=== PATIENT | female | born 1985 | race African-American/Black ===

== ENCOUNTER 2016-03-27 09:26 | Emergency (ER) | payer MEDICAID ==
[~2016-03-27 09:26] MED LIST: METH500T PO; PRENCAP6 PO
[2016-03-27] MEDS ORDERED: LACTATED RINGER'S 1000 ML INJ 1,000 ML IV SCH (10:11)
--- NOTE | 2016-03-27 10:35 | PD ---
HPI Chief Complaint Severe lower abdominal pain Date Seen: Mar 27, 2016 Time Seen: 10:15 Travel History International Travel<30 Days: No Contact w/Intl Traveler<30Days: No Known Affected Area: No History of Present Illness HPI 30-year-old 003 at 19 weeks and 4 days of gestation, EDC is 08/17/16, patient presents to OB ED with complaints of sudden onset of severe lower abdominal pain since last night, patient stated that pain is constant, pain score is 8 out of 10, no radiation, no associated symptoms. Patient denies nausea, vomiting, fever and chills. Patient is unassigned. care is with Dr. Antwan Lopez. course is significant for chronic hypertension and morbid obesity. On examination patient has an exquisite tenderness in the lower abdomen associated with guarding and minimal rebound. Para: 3 : 4 Miscarriage: 0 : 0 History Past Medical History Narrative Medical Significant for history of transient ischemic attacks, history of concoction, history of syncope, sinusitis, anemia, chronic back pain, and morbid obesity. Obstetric History Obstetric History Spontaneous vaginal delivery 3 Past Surgical History Narrative Surgical Denies Surgical History: No Previous Surgery Family History Narrative Family History Grandmother is , father has a history of diabetes, hypertension, COPD and cirrhosis of the liver. Social History Alcohol Use: No Tobacco Use: No Substance Abuse: No Allergies-Medications (Allergen,Severity, Reaction): Coded Allergies: Aspirin (Verified Allergy, Severe, THROAT SWELLS, 01/01/16) Dilaudid (Unverified Allergy, Severe, rash, 01/01/16) Morphine (Verified Allergy, Severe, Hives, 03/27/16) Hydrocodone (Verified Allergy, Mild, itching, 01/01/16) Labetalol (Verified Allergy, Unknown, rash, 01/01/16) Home Meds Active Scripts [id number] M1 500 Mg Njz180 Mg PO Q12 30 Days Ref 1 Prov:Silas Arnett MD 01/01/16 Mv & Min W/Fe Fumarat ( 1) Cap1 Cap PO DAILY 30 Days Ref 11 Prov:Silas Arnett MD 01/01/16 Review of Systems Except as stated in HPI: all other systems reviewed are Neg Gastrointestinal: Abdominal Pain Genitourinary: Pelvic Pain, Other () Physical Exam Narrative GENERAL: Well-nourished, well-developed patient. SKIN: Warm and dry. HEAD: Normocephalic and atraumatic. EYES: No scleral icterus. No injection or drainage. ENT: No nasal drainage noted. Mucous membranes pink. Airway patent. NECK: Supple, trachea midline. No JVD. CARDIOVASCULAR: Regular rate and rhythm without murmurs, gallops, or rubs. RESPIRATORY: Breath sounds equal bilaterally. No accessory muscle use. BREASTS: Bilateral exam showed no masses , no retractions, no nipple discharge. ABDOMEN/GI: Abdomen soft, gravid, non-tender, bowel sounds present, no rebound, no guarding Gravid to 19 weeks size Fundal Height: 19 cm GENITOURINARY: External Genitalia: intact and normal in appearance BUS glands: Normal Cervix: Closed, long, posterior Dilatation: Close Effacement: 30% Station: -3 Presentation: Cephalic Membranes: Intact Uterine Contractions: None Heart Tone by Doppler is 140's EXTREMITIES: No cyanosis or edema. BACK: Nontender without obvious deformity. No CVA tenderness. NEUROLOGICAL: Awake and alert. Motor and sensory grossly within normal limits. Five out of 5 muscle strength in all muscle groups. Normal speech. Data Data Vital Signs Reviewed: Yes Orders Vital Signs (Adult) .ON ADMISSION (03/27/16 10:11) ^ Labor Status (03/27/16 10:11) Urinalysis - C+S If Indicated (03/27/16 10:11) ^ Non Stress Test (03/27/16 10:11) ^ Hydration (03/27/16 10:11) Comprehensive Metabolic Panel (03/27/16 10:11) Lactated Ringer's 1000 Ml Inj (Lr 1000 M (03/27/16 10:11) Ob/Psych Drug Screen, Urine (03/27/16 10:11) Complete Blood Count With Diff (03/27/16 10:11) Amylase (03/27/16 10:11) Lipase (03/27/16 10:11) Mri Abdomen W/O Contrast (03/27/16 10:16) MDM Medical Record Reviewed: Yes Diagnosis Diagnosis: Primary Impression: 19 weeks gestation of Additional Impression: Abdominal pain affecting Disposition: 01 DISCHARGE HOME Condition: Stable Patient Instructions: Abdominal Pain in (ED), General Instructions Additional Instructions: Complete blood count shows white cell count of 14.9, patient underwent pelvic ultrasound and MRI which was unremarkable for appendicitis. We will therefore discharge patient to home. Patient is instructed to return to labor and delivery if increased abdominal pain, cramping, contractions, leakage of fluids , vaginal bleeding, or decreased movement. Drink plenty of fluids. Monitor kick counts. Keep your office appointment with your doctor as scheduled. Take her pain medication as prescribed. She is given a prescription for Tylenol 650 mg orally every 6 hours as needed for pain. Departure Forms: Tests/Procedures Ravin Chavez MD Mar 27, 2016 10:35
[2016-03-27 10:58] LABS: AUTOMATED NEUTROPHIL # 10.7 TH/MM3 (1.8-7.7); BASOPHIL # 0.1 TH/MM3 (0-0.2); BASOPHIL % 0.4 % (0.0-2.0); EOSINOPHIL # 0.2 TH/MM3 (0-0.4); EOSINOPHIL % 1.1 % (0.0-4.0); HEMATOCRIT 29.4 % (35.0-46.0); LYMPH % 17.9 % (9.0-44.0); LYMPHOCYTE # 2.7 TH/MM3 (1.0-4.8); MEAN CELL VOLUME 68.5 FL (80.0-100.0); MEAN CORPUSCULAR HEMOGLOBIN 23.1 PG (27.0-34.0); MEAN CORPUSCULAR HGB CONC 33.8 % (32.0-36.0); MONO % 8.6 % (0.0-8.0); PLATELET COUNT 299 TH/MM3 (150-450); RED CELL DISTRIBUTION WIDTH 17.3 % (11.6-17.2); WHITE BLOOD COUNT 14.9 TH/MM3 (4.0-11.0)
[2016-03-27 10:59] LABS: BACTERIA, URINE FEW /hpf; BLOOD, URINE NEG (NEG); GLUCOSE,URINE NEG (NEG); KETONE, URINE NEG (NEG); MUCUS URINE FEW /lpf (OCC); NITRITE,URINE NEG (NEG); SQUAMOUS EPITHELIAL CELL URINE 12 /hpf (0-5); URINE COLOR YELLOW (YELLW/STRAW)
[2016-03-27 11:00] LABS: COMMENT (UR) CULT NOT INDICATED; CULTURE IF INDICATED CULT NOT INDICATED
[2016-03-27 11:01] LABS: HEMO FLAGS AUTO DIFF
[2016-03-27 11:04] LABS: AMPHETAMINE, URINE NEG (NEG); BARBITURATES, URINE NEG (NEG); COCAINE, URINE NEG (NEG)
[2016-03-27 11:24] LABS: ALT (GPT) 13 U/L (10-53); AMYLASE 92 U/L (25-115); ANION GAP 9 MEQ/L (5-15); AST (GOT) 14 U/L (15-37); BICARBONATE 24.2 MEQ/L (21.0-32.0); BLOOD UREA NITROGEN 6 MG/DL (7-18); CHLORIDE 107 MEQ/L (98-107); GLOMERULAR FILTRATION RATE 131 ML/MIN (>89); SODIUM (NA) 140 MEQ/L (136-145); URIC ACID 3.1 MG/DL (2.6-6.0)
[2016-03-27 11:26] LABS: ALKALINE PHOSPHATASE 93 U/L (45-117); TOTAL BILIRUBIN ADULT 0.3 MG/DL (0.2-1.0)
[2016-03-27 12:01] LABS: SCAN/DIFF AUTO DIFF CONFIRMED
--- NOTE | 2016-03-27 13:52 | RADRPT ---
EXAM DATE/TIME: 03/27/2016 13:23 [facility] COMPARISON: No previous studies available for comparison. INDICATIONS : Bilateral lower pelvic pain. MEDICAL HISTORY : Hypertension. Headache. TIA. Syncope. Sinusitis. Anemia. Chronic back pain. Morbid obesity. SURGICAL HISTORY : None. ENCOUNTER: Initial ACUITY: 1 day PAIN SCORE: 8/10 LOCATION: Bilateral lower quadrant AREA EVALUATED: Bilateral lower quadrants. FINDINGS: Rogel scale and Doppler imaging of the pelvis and right lower outer was performed. Patient has bilater al lower abdominal pain that is greater on the right side. She is approximately 19 weeks . No free fluid is identified in the pelvis. There is shadowing bowel in the right lower quadrant and no appendix is visualized. The ovaries demonstrate blood flow and are normal in size. CONCLUSION: Normal abdominal ultrasound. No free fluid is seen. The appendix is not identified. Patient will proc eed with MRI scanning to evaluate for acute appendicitis. Anuj Herrera MD on March 27, 2016 at 13:49 Board Certified Radiologist. This report was verified electronically.
--- NOTE | 2016-03-27 14:55 | RADRPT ---
EXAM DATE/TIME: 03/27/2016 13:43 [facility] COMPARISON: No previous studies available for comparison. INDICATIONS : Abdominal pain. Evaluate for appendicitis. 19 weeks . MEDICAL HISTORY : . Hypertension. SURGICAL HISTORY : None. ENCOUNTER: Initial ACUITY: 1 day PAIN SCORE: 4/10 LOCATION: pelvis TECHNIQUE: Multiplanar, multisequence magnetic resonance imaging of the abdomen was performed without contrast. FINDINGS: Patient is 19 weeks and there is suspicion for acute appendicitis. Ultrasound examination wa s inconclusive. The terminal ileum has a normal appearance as does the base of the cecum. The appendix is not confide ntly visualized but the region around the expected location of the appendix demonstrates no definite abnormality. No free fluid is visualized in the abdomen or pelvis. There is a single intrauterine gestation present with the fetus in a cephalic presentation. Examinati on is was not performed for detailed evaluation of the fetus. The placenta is anteriorly located and demonstrates no abnormality. There are prominent parametrial vessels, as expected. There is a cyst in the left mid kidney measuring 19 mm and appears simple. No other abnormality is visualized. CONCLUSION: The appendix is not confidently visualized but the terminal ileum has a normal appearance and the are a around the base of the cecum demonstrates no abnormality. This suggests against acute appendicitis. If clinical suspicion persists consider followup. Anuj Herrera MD on March 27, 2016 at 14:49 Board Certified Radiologist. This report was verified electronically.
[2016-03-27] MEDS ORDERED: ACETAMINOPHEN 500 MG CPLT PO ONE (16:00)
[2016-03-31 18:28] LABS: BATH SALTS (MDPV) UR NEG (NEG); ECSTASY (MDMA) UR NEG (NEG); HEROIN (6-ACETYLMORPHINE) UR NEG (NEG); K2 SPICE UR NEG (NEG); OBMETHADONE UR NEG (NEG); OXYCODONE (PERCODAN) NEG (NEG); PHENCYCLIDINE URINE NEG (NEG)
== END 2016-03-27 15:58 | disposition home or self-care (01) ==
LOC: HOBED 09:26
DX: O26.892 Other specified pregnancy related conditions, second trimester (principal); O10.912 Unspecified pre-existing hypertension complicating pregnancy, second trimester; R10.2 Pelvic and perineal pain; O99.212 Obesity complicating pregnancy, second trimester; E66.01 Morbid (severe) obesity due to excess calories; Z3A.19 19 weeks gestation of pregnancy
CPT/HCPCS: 36415; 74181; 76705; 80053; 80307; 81001; 82150; 82570; 83615; 83690; 84156; 84550; 85025; 96360; 96361; 99284; G0481; J7120

== ENCOUNTER 2016-05-29 01:36 | Emergency (ER) | payer MEDICAID ==
--- NOTE | 2016-05-29 03:28 | PD ---
HPI Chief Complaint: dental pain Time Seen by Provider: 01:55 Travel History International Travel<30 days: No Contact w/Intl Traveler<30days: No History of Present Illness HPI Patient comes in complaining of left lower molar dental pain radiating into her left ear ongoing for 1 week. Patient states she saw her dentist on Monday was started on Pen-Vee K, however it made her hands tingle and she stopped taking it. Patient states she is 7 months and has been able take amoxicillin during without any issues. Patient states she last took amoxicillin approximately 3 months ago for bronchitis. Patient states she's not been able to eat that much secondary to the pain in her tooth. She been taking Tylenol for the pain with minimal relief. Denies any fevers, nausea, vomiting, neck pain, or difficulty swallowing. Patient states she was told she needs a root canal by her dentist and is waiting to get with an oral surgeon. PFSH Past Medical History Diminished Hearing: No Hypertension: Yes Immunizations Current: Yes : 3 Para: 3 Miscarriage: 0 : 0 Social History Alcohol Use: No Tobacco Use: No Substance Use: No Allergies-Medications (Allergen,Severity, Reaction): Coded Allergies: Aspirin (Verified Allergy, Severe, THROAT SWELLS, 01/01/16) Dilaudid (Unverified Allergy, Severe, rash, 01/01/16) Morphine (Verified Allergy, Severe, Hives, 03/27/16) Hydrocodone (Verified Allergy, Mild, itching, 01/01/16) Labetalol (Verified Allergy, Unknown, rash, 01/01/16) Reported Meds & Prescriptions Reported Meds & Active Scripts Active [id number] M1 500 Mg Tab 500 Mg PO Q12 30 Days 1 ( Multivitamins) Cap 1 Cap PO DAILY 30 Days Review of Systems Except as stated in HPI: all other systems reviewed are Neg Physical Exam Narrative GENERAL: Well-developed, well nourished, in no acute distress, and non-ill appearing. SKIN: Warm and dry. HEAD: Atraumatic. Normocephalic. EYES: Pupils equal and round. EOMI. No scleral icterus. No injection or drainage. ENT: No nasal bleeding or discharge. Mucous membranes pink and moist. Tympanic membranes pearly carrillo bilaterally. Posterior pharynx nonerythematous without exudate. Uvula is midline. There is poor dentition with no visible or palpable abscess. Patient has dental cement noted in left lower molar. Floor the mouth, submandibular, submental are all soft palpation. NECK: Trachea midline. No cervical lymphadenopathy. Supple. No nuclear rigidity. RESPIRATORY: No accessory muscle use. No respiratory distress. MUSCULOSKELETAL: No obvious deformities. No clubbing. No cyanosis. No edema. Full range of motion. NEUROLOGICAL: Awake and alert. No obvious cranial nerve deficits. Motor grossly within normal limits. Normal speech. PSYCHIATRIC: Appropriate mood and affect; insight and judgment normal. MDM Medical Decision Making Medical Screen Exam Complete: Yes Emergency Medical Condition: Yes Differential Diagnosis Dental infection, dental abscess, dentalgia, other Narrative Course The patient presented with dental pain. There is no fever. There is no significant facial swelling or evidence of cellulitis. There is poor dentition but no evidence of drainable abscess at this time. There is no evidence of significant deep or invading abscess at this time. The patient will be placed on antibiotics (amoxicillin instructed to stop penicillin). The patient was instructed to follow up with a dentist. Warnings were discussed with the patient regarding worsening of infection. The patient is to return if pain worsens, develops progressive swelling or facial redness or fever. The patient agrees with plan. Patient in no obvious distress upon re-evaluation. Patient was asked if they wanted to speak to my attending, which the patient did not wish to do at this time. Any questions/concerns in reference to patient diagnosis/condition discussed and clarified prior to patient's discharge. Reinforced sheer importance of close follow up with patient's primary physician or primary care clinic and/or dentist. Instructed patient to return to ED immediately, if symptoms return/worsen. Pt showed understanding of above instructions. Further instructions and recommendations were detailed in discharge paperwork. Pt ambulated without difficulty out of ED at discharge. Diagnosis Primary Impression: Dentalgia Med/Other Pt SpecificInfo: Prescription(s) given Disposition: 01 DISCHARGE HOME Condition: Stable Rehan Quijano May 29, 2016 03:28
== END 2016-05-29 03:45 | disposition home or self-care (01) ==
LOC: NED 01:36
DX: O26.893 Other specified pregnancy related conditions, third trimester (principal); K08.89 Other specified disorders of teeth and supporting structures; H92.02 Otalgia, left ear; Z3A.00 Weeks of gestation of pregnancy not specified
CPT/HCPCS: 99282

== ENCOUNTER 2016-06-07 21:59 | Emergency (ER) | payer MEDICAID ==
--- NOTE | 2016-06-07 22:59 | PD ---
HPI Chief Complaint Fluid per vagina at 8:45pm Date Seen: Jun 07, 2016 Time Seen: 22:52 Travel History International Travel<30 Days: No Contact w/Intl Traveler<30Days: No Known Affected Area: No History of Present Illness HPI Patient is 30-year-old female who is at 29 weeks and 6 days based on an DONAL of August 17, 2016. She sees Dr. Shankar who manages her chronic hypertension with Aldomet. Earlier this evening patient experienced some sticky mucus per vagina that went down her thigh. She denies contractions or abdominal pain, denies vaginal bleeding. Para: 3 : 4 History Past Medical History Narrative Medical Chronic hypertension patient was on Norvasc prior to and was switched to Aldomet after her was diagnosed Obstetric History Obstetric History Spontaneous vaginal delivery 3 Past Surgical History Surgical History: No Previous Surgery Family History Family History: Negative Social History Alcohol Use: No Tobacco Use: No Substance Abuse: No Allergies-Medications (Allergen,Severity, Reaction): Coded Allergies: Aspirin (Verified Allergy, Severe, THROAT SWELLS, 01/01/16) Dilaudid (Unverified Allergy, Severe, rash, 01/01/16) Morphine (Verified Allergy, Severe, Hives, 03/27/16) Hydrocodone (Verified Allergy, Mild, itching, 01/01/16) Labetalol (Verified Allergy, Unknown, rash, 01/01/16) Home Meds Active Scripts Methyldopa (Methyldopa)500 Mg Gna255 Mg PO Q12 30 Days Ref 1 Prov:Silas Arnett MD 01/01/16 Mv & Min W/Fe Fumarat ( 1) Cap1 Cap PO DAILY 30 Days Ref 11 Prov:Silas Arnett MD 01/01/16 Review of Systems Except as stated in HPI: all other systems reviewed are Neg Physical Exam Narrative GENERAL: Well-nourished, well-developed patient. SKIN: Warm and dry. HEAD: Normocephalic and atraumatic. EYES: No scleral icterus. No injection or drainage. ENT: No nasal drainage noted. Mucous membranes pink. Airway patent. NECK: Supple, trachea midline. No JVD. CARDIOVASCULAR: Regular rate and rhythm without murmurs, gallops, or rubs. RESPIRATORY: Breath sounds equal bilaterally. No accessory muscle use. BREASTS: Bilateral exam showed no masses , no retractions, no nipple discharge. ABDOMEN/GI: Abdomen soft, non-tender, bowel sounds present, no rebound, no guarding Gravid to [-30] weeks size, exam is difficult secondary to patient habitus Fundal Height: [-] GENITOURINARY: External Genitalia: intact and normal in appearance BUS glands: [-Normal] Cervix: Posterior Dilatation: Closed Effacement: Long Station: -3 Presentation: Vertex Membranes: Intact head is ballotable, amnisure is negative Uterine Contractions: [-] FHT's: Category: [1-] Baseline: 140 Reactive: Moderate Variability: Moderate with accelerations Decels: [-Absent] EXTREMITIES: No cyanosis or edema. BACK: Nontender without obvious deformity. No CVA tenderness. NEUROLOGICAL: Awake and alert. Motor and sensory grossly within normal limits. Five out of 5 muscle strength in all muscle groups. Normal speech. 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 Diagnosis Diagnosis: Primary Impression: 29 weeks gestation of Additional Impressions: Morbid obesity due to excess calories Chronic hypertension during Chronic hypertension with exacerbation during in third trimester Disposition: 01 DISCHARGE HOME Maida Reyes MD Jun 07, 2016 22:58
== END 2016-06-07 23:05 | disposition home or self-care (01) ==
LOC: HOBED 21:59
DX: O99.213 Obesity complicating pregnancy, third trimester (principal); E66.01 Morbid (severe) obesity due to excess calories; O10.913 Unspecified pre-existing hypertension complicating pregnancy, third trimester; O26.893 Other specified pregnancy related conditions, third trimester; N89.8 Other specified noninflammatory disorders of vagina; Z3A.29 29 weeks gestation of pregnancy
CPT/HCPCS: 84112; 99284

== ENCOUNTER 2017-03-29 18:38 | Emergency (ER) | payer MEDICAID ==
[~2017-03-29] VITALS: Ht 175.3 cm; Wt 104.5 kg
[2017-03-29 18:40] VITALS: BP 182/111; PULSE 94; RESP 14; TEMP 99; O2SAT 100
--- NOTE | 2017-03-29 19:41 | PD ---
HPI Chief Complaint: Injury Time Seen by Provider: 19:38 Travel History International Travel<30 days: No Contact w/Intl Traveler<30days: No Traveled to known affect area: No History of Present Illness HPI 31-year-old female presents to the emergency department for evaluation of left knee pain. Patient slipped and fell in [employer] one week ago landing on the anterior aspect of the knee. She states that she has been ambulatory since but the pain has not resolved. Pain is exacerbated with movement. It is constant, moderate in severity. Does not radiate anywhere. Denies any limitations range of motion. No other symptoms to report. PFSH Past Medical History Diminished Hearing: No Hypertension: Yes Immunizations Current: Yes ?: Not LMP: 03/27/2017 : 3 Para: 3 Miscarriage: 0 : 0 Social History Alcohol Use: No Tobacco Use: No Substance Use: No Allergies-Medications (Allergen,Severity, Reaction): Coded Allergies: aspirin (Unverified Allergy, Severe, THROAT SWELLS, 10/18/16) hydromorphone (Unverified Allergy, Severe, rash, 10/18/16) morphine (Unverified Allergy, Severe, Hives, 10/18/16) hydrocodone (Unverified Allergy, Mild, itching, 10/18/16) labetalol (Unverified Allergy, Unknown, rash, 10/18/16) Reported Meds & Prescriptions Reported Meds & Active Scripts Active Ibuprofen 800 Mg Tab 800 Mg PO Q8H PRN Methyldopa 500 Mg Tab 500 Mg PO Q12 30 Days 1 ( Multivitamins) Cap 1 Cap PO DAILY 30 Days Review of Systems Except as stated in HPI: all other systems reviewed are Neg Physical Exam Narrative GENERAL: Obese female patient, in no acute distress. SKIN: Focused skin assessment warm/dry. HEAD: Atraumatic. Normocephalic. EYES: Pupils equal and round. No scleral icterus. No injection or drainage. ENT: No nasal bleeding or discharge. Mucous membranes pink and moist. NECK: Trachea midline. No JVD. CARDIOVASCULAR: Regular rate and rhythm. No murmur appreciated. RESPIRATORY: No accessory muscle use. Clear to auscultation. Breath sounds equal bilaterally. GASTROINTESTINAL: Abdomen soft, non-tender, nondistended. Hepatic and splenic margins not palpable. MUSCULOSKELETAL: No obvious deformities. No clubbing. No cyanosis. No edema. Denies illicit palpation of the anterior left knee. No obvious deformity. Patient has full flexion and extension. Distal pulses are palpable. NEUROLOGICAL: Awake and alert. No obvious cranial nerve deficits. Motor grossly within normal limits. Normal speech. PSYCHIATRIC: Appropriate mood and affect; insight and judgment normal. Data Data Last Documented VS Vital Signs Date Time Temp Pulse Resp B/P (MAP) Pulse Ox O2 Delivery O2 Flow Rate FiO2 03/29/17 20:54 03/29/17 18:40 99.0 94 14 100 Orders Orders Knee, Complete (4vws) (03/29/17 ) Ibuprofen (Motrin) (03/29/17 20:00) Ed Discharge Order (03/29/17 20:45) Rod Bandage (03/29/17 20:47) [facility] Medical Decision Making Medical Screen Exam Complete: Yes Emergency Medical Condition: Yes Medical Record Reviewed: Yes Differential Diagnosis Contusion versus fracture versus joint effusion versus sprain Narrative Course 31-year-old female presents to the emergency department for evaluation left knee pain. Patient does have tenderness over the anterior aspect of the knee but no deformity and no limitation in range of motion. X-ray imaging confirms no acute bony abnormality. Patient was given ibuprofen for pain. Rod wrap is applied. I have counseled her on care. She agrees to return immediately with any acute worsening of symptoms. Diagnosis Primary Impression: Contusion of left knee Qualified Codes: S80.02XA - Contusion of left knee, initial encounter Referrals: Primary Care Physician Patient Instructions: Contusion in Adults (ED), General Instructions Additional Instructions: Ice and elevate to reduce pain and swelling Rod wrap for compression and comfort Follow-up with a primary care provider Return immediately with any acute worsening symptoms Med/Other Pt SpecificInfo: Prescription(s) given, No Change to Meds Scripts Ibuprofen (Ibuprofen) 800 Mg Tab 800 MG PO Q8H Y for Pain/Inflammation, #30 TAB 0 Refills Prov: Diann Cervantes DAYANARA 03/29/17 Disposition: 01 DISCHARGE HOME Condition: Stable BillyDiann NICHOLE Mar 29, 2017 19:40
[2017-03-29] MEDS ORDERED: IBUPROFEN 800 MG TAB PO ONE (20:00)
--- NOTE | 2017-03-29 20:42 | RADRPT ---
EXAM DATE/TIME: 03/29/2017 19:56 [facility] COMPARISON: No previous studies available for comparison. INDICATIONS : Knee pain due to fall. MEDICAL HISTORY : Hypertension. SURGICAL HISTORY : None. ENCOUNTER: Initial ACUITY: 1 day PAIN SCORE: 9/10 LOCATION: Left knee FINDINGS: Four view examination of the left knee demonstrates no evidence of fracture or dislocation. Bony min eralization is normal. The articular surfaces are intact. The suprapatellar soft tissues have a nor mal configuration. CONCLUSION: 1. No acute findings. Chele Alvarez MD on March 29, 2017 at 20:39 Board Certified Radiologist. This report was verified electronically.
[2017-03-29] MEDS ORDERED: IBUP1TAB7 PO (20:47)
== END 2017-03-29 20:55 | disposition home or self-care (01) ==
LOC: NEPD 18:38
DX: S80.02XA Contusion of left knee, initial encounter (principal); I10 Essential (primary) hypertension; Z88.5 Allergy status to narcotic agent; Z88.8 Allergy status to other drugs, medicaments and biological substances; W01.0XXA Fall on same level from slipping, tripping and stumbling without subsequent striking against object, initial encounter; Y92.512 Supermarket, store or market as the place of occurrence of the external cause
CPT/HCPCS: 73564; 99283

== ENCOUNTER 2017-06-25 08:10 | Emergency (ER) | payer MEDICAID ==
[~2017-06-25] VITALS: Ht 175.3 cm; Wt 132.0 kg
[~2017-06-25 08:10] MED LIST changes: +IBUP1TAB7 PO
[2017-06-25 08:21] VITALS: BP 121/76; PULSE 81; RESP 17; TEMP 98; O2SAT 100
[2017-06-25] MEDS ORDERED: AMLO10 PO (08:33)
--- NOTE | 2017-06-25 09:01 | PD ---
HPI Chief Complaint: Musculoskeletal Complaint Time Seen by Provider: 08:32 Travel History International Travel<30 days: No Contact w/Intl Traveler<30days: No Traveled to known affect area: No History of Present Illness HPI 31-year-old female presents emergency department status post slip and fall in her bathtub last evening. She fell directly onto the anterior part of the right knee. She now has knee pain and swelling and difficulty with ambulating. The patient is grossly obese. There is no open wound or abrasion. She denies other injury. No hip pain or back pain. Pain in the knee is 10 out of 10. It is worse with palpation or movement. She denies loss of function. She has multiple allergies including aspirin, hydrocodone, hydromorphone, labetalol, and morphine. PFSH Past Medical History Diminished Hearing: No Hypertension: Yes Immunizations Current: Yes Tetanus Vaccination: Unknown Influenza Vaccination: No ?: Not LMP: 06/2017 : 3 Para: 3 Miscarriage: 0 : 0 Past Surgical History Surgical History: No Previous Surgery Social History Alcohol Use: No Tobacco Use: No Substance Use: No Allergies-Medications (Allergen,Severity, Reaction): Coded Allergies: aspirin (Unverified Allergy, Severe, THROAT SWELLS, 06/25/17) hydromorphone (Unverified Allergy, Severe, rash, 06/25/17) morphine (Unverified Allergy, Severe, Hives, 06/25/17) hydrocodone (Unverified Allergy, Mild, itching, 06/25/17) labetalol (Unverified Allergy, Unknown, rash, 06/25/17) Reported Meds & Prescriptions Reported Meds & Active Scripts Active Ibuprofen 800 Mg Tab 800 Mg PO Q8H PRN Reported Norvasc (Amlodipine Besylate) 10 Mg Tab 10 Mg PO DAILY Review of Systems Except as stated in HPI: all other systems reviewed are Neg General / Constitutional: No: Fever Eyes: No: Visual changes HENT: No: Headaches Cardiovascular: No: Chest Pain or Discomfort Respiratory: No: Shortness of Breath Gastrointestinal: No: Abdominal Pain Genitourinary: No: Dysuria Musculoskeletal: Positive: Myalgias, Arthralgias, Limited ROM, Pain Skin: No Rash Neurologic: No: Weakness Psychiatric: No: Depression Endocrine: No: Polydipsia Hematologic/Lymphatic: No: Easy Bruising Physical Exam Narrative GENERAL: Patient appears in mild to moderate distress. SKIN: Warm and dry. Normal color. Normal turgor. No abrasions. No ecchymosis HEAD: Atraumatic. Normocephalic. EYES: Pupils equal and round. No scleral icterus. No injection or drainage. ENT: No nasal bleeding or discharge. Mucous membranes pink and moist. NECK: Trachea midline. Full range of motion without tenderness CARDIOVASCULAR: Regular rate and rhythm. RESPIRATORY: No accessory muscle use. Clear to auscultation. Breath sounds equal bilaterally. GASTROINTESTINAL: Abdomen soft, non-tender, nondistended. Hepatic and splenic margins not palpable. MUSCULOSKELETAL: Extremities without clubbing, cyanosis, or edema. No obvious deformities. Patient has pain with palpation along the anterior patella and proximal tibial plateau. Range of motion is reduced secondary to pain. No obvious laxity. Mild effusion. Further exam is unable to be performed secondary to patient's pain. NEUROLOGICAL: Awake and alert. No obvious cranial nerve deficits. Motor grossly within normal limits. Five out of 5 muscle strength in the arms and legs. Normal speech. PSYCHIATRIC: Appropriate mood and affect; insight and judgment normal. Data Data Last Documented VS Vital Signs Date Time Temp Pulse Resp B/P (MAP) Pulse Ox O2 Delivery O2 Flow Rate FiO2 06/25/17 08:21 98.0 81 17 121/76 (91) 100 Orders Orders Knee, Complete (4vws) (06/25/17 08:33) Ice/Cold Pack (06/25/17 08:33) Crutches (06/25/17 09:07) Ed Discharge Order (06/25/17 09:13) Splint Or Brace Apply/Monitor (06/25/17 09:23) [facility] Medical Decision Making Medical Screen Exam Complete: Yes Emergency Medical Condition: Yes Differential Diagnosis Slip and fall. Right knee contusion. Fracture. Right knee effusion. Narrative Course X-ray of the right knee is obtained. Patient is given ibuprofen 800 mg p.o. now. Ice is placed on the affected area. X-rays negative for any acute process. Patient is placed in a Rod wrap and crutches. Patient is given ibuprofen 800 mg 3 times daily #30. Patient to follow-up with her primary care physician or Dr. Manzano, the orthopedic on-call Diagnosis Primary Impression: Contusion of right knee, initial encounter Referrals: Iván Manzano Jr., MD Patient Instructions: Contusion in Adults (ED), General Instructions, Swollen Knee Joint (ED) Departure Forms: Work Release Enter return to work date: Jun 28, 2017 Additional Instructions: X-rays negative for any acute process. Patient is placed in a Rod wrap and crutches. Patient is given ibuprofen 800 mg 3 times daily #30. Patient to follow-up with her primary care physician or Dr. Manzano, the orthopedic on-call Med/Other Pt SpecificInfo: Prescription(s) given Scripts Ibuprofen (Ibuprofen) 800 Mg Tab 800 MG PO Q8H Y for Pain/Inflammation, #30 TAB 0 Refills Prov: Soila Martinez MD 06/25/17 Disposition: 01 DISCHARGE HOME Condition: Stable Cheo Pires Jun 25, 2017 09:01
--- NOTE | 2017-06-25 09:04 | RADRPT ---
EXAM DATE/TIME: 06/25/2017 08:47 [facility] COMPARISON: No previous studies available for comparison. INDICATIONS : Right knee pain. Patient states she fell last night and felt a pop in her knee. MEDICAL HISTORY : None. SURGICAL HISTORY : None. ENCOUNTER: Initial ACUITY: 2 days PAIN SCORE: 9/10 LOCATION: Right knee. FINDINGS: Four view examination of the right knee demonstrates no evidence of fracture or dislocation. Bony mi neralization is normal. The articular surfaces are intact. The suprapatellar soft tissues have a no rmal configuration. CONCLUSION: Negative trauma study. Saroj Lezama MD on June 25, 2017 at 9:01 Board Certified Radiologist. This report was verified electronically.
[2017-06-25] MEDS ORDERED: IBUP1TAB7 PO (09:13)
== END 2017-06-25 09:33 | disposition home or self-care (01) ==
LOC: NEPD 08:10
DX: S80.01XA Contusion of right knee, initial encounter (principal); I10 Essential (primary) hypertension; Y93.E1 Activity, personal bathing and showering; W01.0XXA Fall on same level from slipping, tripping and stumbling without subsequent striking against object, initial encounter
CPT/HCPCS: 73564; 99283; E0113; L1830

== ENCOUNTER 2017-08-04 07:15 | Emergency (ER) | payer MEDICAID ==
[~2017-08-04] VITALS: Ht 170.2 cm; Wt 132.0 kg
[~2017-08-04 07:15] MED LIST changes: +AMLO10 PO; -METH500T PO; -PRENCAP6 PO
[2017-08-04 07:18] VITALS: BP 190/85; PULSE 66; RESP 20; TEMP 97.6; O2SAT 100
--- NOTE | 2017-08-04 08:09 | PD ---
HPI Chief Complaint: Fall Time Seen by Provider: 07:50 Travel History International Travel<30 days: No Contact w/Intl Traveler<30days: No Traveled to known affect area: No History of Present Illness HPI 31yo F presents to the ED for R knee and R thumb pain following a fall yesterday afternoon. Pt states that she falls often, and attributes it to her blood pressure, and is unsure of how she fell yesterday. During this past fall, she denies any LOC or head trauma, but fell on her R knee and R hand. She was able to ambulate immediately after the fall, and can put some pressure on it currently. She states that pressure/weight bearing aggravates it, and is slightly alleviated by elevation, ice and ibuprofen. She reports numbness in the RLE with ambulation, limited ROM, tenderness and edema. She denies any erythema to the joint, warmth to touch, fevers, additional arthralgias, headaches or dizziness. PFSH Past Medical History Diminished Hearing: No Hypertension: Yes Immunizations Current: Yes Tetanus Vaccination: Unknown Influenza Vaccination: No ?: Not LMP: 07/18/2017 : 3 Para: 3 Miscarriage: 0 : 0 Past Surgical History Surgical History: No Previous Surgery Social History Alcohol Use: No Tobacco Use: No Substance Use: No Allergies-Medications (Allergen,Severity, Reaction): Coded Allergies: aspirin (Unverified Allergy, Severe, THROAT SWELLS, 08/04/17) hydromorphone (Unverified Allergy, Severe, rash, 08/04/17) morphine (Unverified Allergy, Severe, Hives, 08/04/17) hydrocodone (Unverified Allergy, Mild, itching, 08/04/17) labetalol (Unverified Allergy, Unknown, rash, 08/04/17) Reported Meds & Prescriptions Reported Meds & Active Scripts Active Reported Norvasc (Amlodipine Besylate) 10 Mg Tab 10 Mg PO DAILY Review of Systems Except as stated in HPI: all other systems reviewed are Neg Musculoskeletal: Positive: Limited ROM, Edema, Pain Physical Exam Narrative GENERAL: well developed, obese female who is in no acute distress. Alert and oriented x3. SKIN: Warm and dry. HEAD: Atraumatic. Normocephalic. CARDIOVASCULAR: Regular rate and rhythm. RESPIRATORY: No accessory muscle use. Clear to auscultation. Breath sounds equal bilaterally. MUSCULOSKELETAL: Extremities without clubbing or cyanosis. Limited ROM in R knee , with tenderness along the lateral, superior aspect. No erythema. Unable to appreciate considerable edema due to patient's body habitus. Pedal pulses palpable and symmetric bilaterally. RLE pain with passive and active motion. NEUROLOGICAL: Awake and alert. No obvious cranial nerve deficits. Motor grossly within normal limits. Five out of 5 muscle strength in the LUE and LLE. RLE muscle strength unappreciable due to minimal effort. Normal speech. PSYCHIATRIC: Appropriate mood and affect; insight and judgment normal. Data Data Last Documented VS Vital Signs Date Time Temp Pulse Resp B/P (MAP) Pulse Ox O2 Delivery O2 Flow Rate FiO2 08/04/17 07:18 97.6 66 20 190/85 (120) 100 Orders Orders Hand, Limited (2vws) (08/04/17 08:26) Knee, Ltd (1 Or 2vws) (08/04/17 08:26) Ibuprofen (Motrin) (08/04/17 09:15) Support Splint (08/04/17 09:46) ^ Knee Immobilizer (08/04/17 09:46) [employer] Request For Service (08/04/17 09:46) Mandatory Outpatient Referral (08/04/17 09:48) MDM Medical Decision Making Medical Screen Exam Complete: Yes Emergency Medical Condition: Yes Differential Diagnosis Right knee contusion versus fracture versus right hand contusion versus fracture Narrative Course 31-year-old female with history of hypertension, obesity, who presents today with complaints of right knee pain and right hand pain. Patient reports falling. There is no syncopal episode. This was a mechanical fall. X-ray of the knee and right hand show no evidence of acute fracture or injury. The patient will be placed in a right knee immobilizer. She also be placed in the right thumb spica splint. She is instructed to ice the extremities. A mandatory referral will be placed for Ortho follow-up. She is instructed to keep her right hand in the splint until seen by orthopedic doctor. She is instructed to return if she develops any worsening symptoms. She also has a history of hypertension her blood pressure was elevated when she arrived. She will be given information from the [facility] for follow-up. She is instructed to make an appointment and have her blood pressure rechecked. If it remains elevated she was told that she may likely need to have adjustment on her medications. Diagnosis Primary Impression: Contusion of right hand Additional Impressions: Contusion of right knee Status post mechanical fall Hypertension Additional Instructions: Ice 2-3 times daily. Elevate when not ambulatory. A mandatory referral for orthopedic doctor will be placed. You will receive a call from a case management specialist time he went to follow-up. Return if worse. Follow-up with the [facility] for blood pressure management. Disposition: 01 DISCHARGE HOME Condition: Stable Jorge Roman MD Aug 04, 2017 08:09
--- NOTE | 2017-08-04 09:14 | RADRPT ---
EXAM DATE: 08/04/2017 8:59 AM EDT AGE/SEX: 31 years / Female INDICATIONS: Fall, complains of right first digit pain. CLINICAL DATA: This is the patient's initial encounter. Patient reports that signs and symptoms have been present for 2 days and indicates a pain score of 9/10. MEDICAL/SURGICAL HISTORY: . High blood pressure . None COMPARISON: No prior [facility] exams available for comparison. FINDINGS: Bony structures are intact and in normal alignment. Osseous density is normal. Soft tissues are unre markable. No radiopaque foreign bodies seen. CONCLUSION: Negative trauma study. Electronically signed by: Saroj Lezama MD 08/04/2017 9:13 AM EDT
[2017-08-04] MEDS ORDERED: IBUPROFEN 600 MG TAB PO ONE (09:15)
--- NOTE | 2017-08-04 09:17 | RADRPT ---
EXAM DATE: 08/04/2017 9:03 AM EDT AGE/SEX: 31 years / Female INDICATIONS: Fall, complains of right knee pain. CLINICAL DATA: This is the patient's initial encounter. Patient reports that signs and symptoms have been present for 2 days and indicates a pain score of 9/10. MEDICAL/SURGICAL HISTORY: . High blood pressure None. COMPARISON: No prior [facility] exams available for comparison. FINDINGS: Bony structures are intact and in normal alignment. Joints are intact without dislocation or signifi cant arthropathy. Osseous density is normal. Soft tissues are unremarkable. No radiopaque foreign bodies seen. CONCLUSION: Negative trauma study. Electronically signed by: Saroj Lezama MD 08/04/2017 9:16 AM EDT
== END 2017-08-04 11:10 | disposition home or self-care (01) ==
LOC: NEPE 07:15
DX: S60.221A Contusion of right hand, initial encounter (principal); S80.01XA Contusion of right knee, initial encounter; I10 Essential (primary) hypertension; E66.9 Obesity, unspecified; W18.30XA Fall on same level, unspecified, initial encounter; Z79.899 Other long term (current) drug therapy; Z88.6 Allergy status to analgesic agent; Z88.5 Allergy status to narcotic agent; Z88.8 Allergy status to other drugs, medicaments and biological substances
CPT/HCPCS: 73120; 73560; 99284; L1830; L3808